=== PATIENT | female | born 1965 | race Caucasian/White ===

== ENCOUNTER 2016-04-25 21:07 | Emergency (ER) | payer OTHER ==
[~2016-04-25 21:07] MED LIST: ACETAMINOPHEN PO; ADVIL200 M3 PO; ALBUTEROL17 GM INH; AMBIEN CR PO; AMOXICILLIN500 M1 PO; ANTIVERT PO; ANTIVERT12.5 MG PO; ASPIRIN PO; ASPIRINEC PO; BACTRIM DS TABL1 TA1 PO; BENADRYL IV; BENZONATATE PO; CARDIZEM SR PO; COLACE PO; COUMADIN PO; DESYREL50 M1 PO; DESYREL50 MG PO; DIABETIC MEDICATION; FLEXERIL PO; FLEXERIL10 M1 PO; FLEXERIL10 MG PO; HYDROCODON-ACE1 EAC5 PO; HYDROCODONE-APA1 T45 PO; IBUPROFEN PO; IBUPROFEN800 MG PO; KEFLEX500 MG PO; KETOPROFEN PO; LIDOCAINE PATCH; LIDODERM30 EA TOP; LISINOPRIL PO; LOMOTIL WHITE2.5 MG PO; LORTAB 10/500 T1 TAB PO; LORTAB 7.5-5001 TAB; LORTAB 7.5-5001 TAB PO; LOVENOX SUBQ; LYRICA PO; MEDI-MECLIZINE25 M1 PO; METFORMIN HCL500 M1 PO; MILK OF MAGNESIA PO; MOTRIN600 M1 PO; NAPROSYN500 MG PO; NASACORT AQ16.5 GM; NEURONTIN PO; NEURONTIN600 MG; NORTRIPTYLINE H10 MG PO; OMEPRAZOLE10 MG PO; OMEPRAZOLE20 M1 PO; PERCOCET5/325 PO; PHENERGAN25 MG PO; PREDNISONE PO; PRILOSEC PO; PROTONIX PO; ROBITUSSIN A-C-S1 ML PO; SENNA PO; SYMBICORT INH; TRADJENTA5 MG PO; TRAMADOL HCL50 M1 PO; TRAZODONE PO; VESICARE PO; VICODIN; VICODIN 5/500 T1 TAB PO; VICODIN PO; VOLTAREN50 MG PO; VOLTAREN75 MG PO; ZESTRIL2.5 M1 PO; ZITHROMAX PO; ZOCOR PO; ZOLOFT PO; [UNRECOGNIZED DRUG - OTHER]; [UNRECOGNIZED DRUG - REMARK]; [UNRECOGNIZED DRUG - REMARK] PO; [UNRECOGNIZED DRUG - REMARK] PO; [UNRECOGNIZED DRUG - REMARK] PO
[2016-04-25 21:43] LABS: INFLUENZA A NEG (NEG); INFLUENZA B NEG (NEG)
== END 2016-04-25 22:53 | disposition home or self-care (01) ==
LOC: SED 21:07
PROVIDERS: Physician Assistant
DX: J02.0 Streptococcal pharyngitis (principal); E11.9 Type 2 diabetes mellitus without complications; Z86.73 Personal history of transient ischemic attack (TIA), and cerebral infarction without residual deficits; Z91.041 Radiographic dye allergy status; Z91.013 Allergy to seafood; Z88.8 Allergy status to other drugs, medicaments and biological substances
CPT/HCPCS: 87804; 87880; 96372; 99283; J0561